=== PATIENT | female | born 1955 | race Caucasian/White ===

== ENCOUNTER → 2017-01-16 | Outpatient (CLI) | payer BC ==
[2016-03-08 21:30] VITALS: BP 150/73
[~2017-01-16] MED LIST: CITA20SO PO; LEVO75TA5 PO; LOSA50TA6 PO; METF500T4 PO; PRAV10TA2 PO
--- NOTE | 2017-01-16 14:59 | RAD ---
Abdominal ultrasound - limited to the kidneys Indication: Chronic kidney disease stage III. Comparison: Ultrasound abdomen 09/20/2016. Procedure: Transabdominal ultrasound images are obtained of the kidneys and bladder. Findings: Right kidney measures 10.9 cm in length. Superior pole of right kidney demonstrates 1.5 cm echogenic focus without convincing shadowing, thought to represent angiomyolipoma. No convincing stone is seen. No obstruction is identified. Underlying parenchymal echogenicity of the right kidney appears appropriate. Left kidney measures 11.3 cm in length. Left kidney is without obstruction or stone. Underlying parenchymal echogenicity appears appropriate. Urinary bladder has unremarkable appearance. Impression: 1. Small right renal angiomyolipoma. 2. Otherwise, unremarkable renal ultrasound.
== END | disposition home or self-care (01) ==
LOC: US 13:32
PROVIDERS: ATTEND Internal Medicine Nephrology
DX: N18.3 Chronic kidney disease, stage 3 (moderate) (principal)
CPT/HCPCS: 76770

== ENCOUNTER → 2017-01-30 | Outpatient (CLI) | payer BC ==
[2016-03-08 21:30] VITALS: BP 150/73
--- NOTE | 2017-01-31 07:19 | RAD ---
Bilateral lower extremity venous ultrasound, 01/30/2017: History: Leg edema Duplex evaluation of the deep veins in the lower extremities was performed including grayscale, color-flow and spectral Doppler analysis. The femoral and popliteal veins demonstrate normal compressibility and normal responses to distal augmentation maneuvers. Color imaging of those vessels shows no evidence of intraluminal clot. The visualized deep veins in both calves are patent. IMPRESSION: There is no sonographic evidence of deep vein thrombosis in either lower extremity.
== END | disposition home or self-care (01) ==
LOC: US 16:38
PROVIDERS: ATTEND Family Medicine
DX: I82.4Z1 Acute embolism and thrombosis of unspecified deep veins of right distal lower extremity (principal)
CPT/HCPCS: 93970

== ENCOUNTER 2017-02-05 19:59 | Emergency (ER) | payer BC ==
[~2017-02-05] VITALS: Ht 162.6 cm; Wt 87.0 kg
--- NOTE | 2017-02-05 20:25 | ED.ADGEN ---
Past History Past Medical History: Anxiety, Diabetes, Hypertension, Hypothyroid, Hepatitis, Lung Disease, Other Past Surgical History: Tonsillectomy, Tubal ligation Alcohol Use: None Drug Use: None Adult General Chief Complaint Chief Complaint ".. I am so sick.." [facility] HPI Patient is a 61 year old female who presents with two days of marked increase of dyspnea. Pt. also hx of dry heaving. Pt. states she had been treated for increase ankle edema the past two weeks with additional diuretics. Pt. follows with Dr. Cordova and Dr. Floyd. Patient reports history of chronic renal failure, CHF, diabetes, pulmonary fibrosis, hypertension, coronary artery disease, status post bypass surgery, and recent episode of severe nausea and vomiting. Review of Systems Review of Systems Constitutional: Subjective history of fever or chills [] Eyes: Denies change in visual acuity, redness, or eye pain [] HENT: Denies nasal congestion or sore throat [] Respiratory: History of cough and shortness of breath [] Cardiovascular: No additional information not addressed in HPI [] GI: History of generalized abdominal pain, nausea, vomiting, and diarrhea [] : Denies dysuria or hematuria [] Musculoskeletal: Denies back pain or joint pain [] Integument: Denies rash or skin lesions [] Neurologic: Denies headache, focal weakness or sensory changes [] Endocrine: Denies polyuria or polydipsia [] Family History Family History Noncontributory Current Medications Current Medications Current Medications Medications (Trade) Dose Ordered Sig/Joselyn Start Time Stop Time Status Last Admin Dose Admin Albuterol/ Ipratropium (Duoneb) 3 ml 1X ONCE 02/05/17 21:00 02/05/17 21:01 DC 02/05/17 21:00 3 ML Aspirin 324 mg 324 mg 1X ONCE 02/05/17 21:00 02/05/17 21:01 DC Azithromycin (Zithromax) 500 mg 1X ONCE 02/05/17 21:00 02/05/17 21:01 DC Calcium Chloride 1,000 mg 1X ONCE 02/05/17 21:00 02/05/17 21:01 DC 02/05/17 21:00 1,000 MG Ceftriaxone Sodium/Sodium Chloride (Rocephin/Iv Sodium Chloride 0.9% 100ml) 100 ml @ 200 mls/hr 1X ONCE 02/05/17 21:00 02/05/17 21:29 DC 02/05/17 21:00 200 MLS/HR Ceftriaxone Sodium (Rocephin) 2 gm STK-MED ONCE 02/05/17 22:11 02/05/17 22:12 DC Dextrose 25 gm 1X ONCE 02/05/17 21:00 02/05/17 21:01 DC 02/05/17 21:00 25 GM Enoxaparin Sodium (Lovenox 100mg Syringe) 100 mg 1X ONCE 02/05/17 21:00 02/05/17 21:01 DC 02/05/17 21:00 100 MG Insulin Human Regular (Novolin R) 10 unit 1X ONCE 02/05/17 21:00 02/05/17 21:01 DC 02/05/17 21:00 10 UNIT Methylprednisolone Sodium Succinate 125 mg 125 mg 1X ONCE 02/05/17 21:00 02/05/17 21:01 DC 02/05/17 21:00 125 MG Norepinephrine Bitartrate 4 mg 4 mg STK-MED ONCE 02/05/17 21:44 02/05/17 21:45 DC Sodium Polystyrene Sulfonate (Kayexalate) 30 gm 1X ONCE 02/05/17 22:30 02/05/17 22:31 DC Sodium Bicarbonate 50 meq 1X ONCE 02/05/17 21:00 02/05/17 21:01 DC 02/05/17 20:57 50 MEQ Sodium Chloride (Iv Sodium Chloride 0.9% 1,000ml) 1,000 ml @ 100 mls/hr Q10H 02/05/17 21:00 02/06/17 07:00 DC 02/05/17 21:00 100 MLS/HR Sodium Chloride (Iv Sodium Chloride 0.9% 100ml) 100 ml @ As Directed STK-MED ONCE 02/05/17 22:11 02/05/17 22:12 DC Allergies Allergies Allergies Coded Allergies Type Severity Reaction Last Updated Verified Sulfa (Sulfonamide Antibiotics) Allergy Intermediate Hives 11/15/14 Yes Physical Exam Physical Exam Constitutional: in acute distress, morbidly ill in appearance. [] HENT: Normocephalic, atraumatic, bilateral external ears normal, actively vomiting, no oral exudates, nose normal. [] Eyes: PERRLA, EOMI, conjunctiva normal, no discharge. [] Neck: Normal range of motion, no tenderness, supple, no stridor. JVD Cardiovascular:Heart rate regular rhythm, no murmur, PMI to the left Lungs & Thorax: Bilateral breath sounds diffuse rhonchi wheezing and rales throughout lung brizuela on auscultation [. Midline scar Abdomen: Bowel sounds are active, soft, generalized tenderness, no masses, no pulsatile masses. Old scar Skin: Warm, dry, no erythema, no rash. Poor turgor Back: No tenderness, no CVA tenderness. [] Extremities: No tenderness, no cyanosis, no clubbing, ROM intact, leg edema. Arthritic changes Neurologic: Alert and oriented X 3, generalized weakness,, decreased distal sensory function, no focal deficits noted. [] Psychologic: Affect very anxious, judgement normal, mood depressed Current Patient Data Vital Signs Vital Signs Date Time Temp Pulse Resp B/P Pulse Ox O2 Delivery O2 Flow Rate FiO2 02/05/17 22:32 71 21 113/49 98 02/05/17 22:13 Ventilator 02/05/17 22:05 97.7 2 Lab Results Laboratory Tests Test 02/05/17 20:02 02/05/17 20:10 02/05/17 20:27 02/05/17 22:10 Prothrombin Time 21.5SEC (9.4-11.4) H Prothrombin Time INR 2.1 (0.9-1.1) H PTT 35SEC (23-33) H D-Dimer (Tiff) 1.35mg/L (0.00-0.50) H Sodium Level 132mmol/L (136-145) L Potassium Level 6.3mmol/L (3.5-5.1) *H Chloride Level 93mmol/L (98-107) L Carbon Dioxide Level 7mmol/L (21-32) *L Anion Gap 32 (6-14) H 29mmol/L (6-14) H Blood Urea Nitrogen 74mg/dL (7-20) H Creatinine 4.0mg/dL (0.6-1.0) H Estimated GFR (Cockcroft-Gault) 11.3 Glucose Level 72mg/dL (70-99) 70mg/dL (60-99) Calcium Level 8.9mg/dL (8.5-10.1) Magnesium Level 1.8mg/dL (1.8-2.4) Total Bilirubin 2.5mg/dL (0.2-1.0) H Direct Bilirubin 1.9mg/dL (0.0-0.2) H Aspartate Amino Transferase (AST) 183U/L (15-37) H Alanine Aminotransferase (ALT) 70U/L (14-59) H Alkaline Phosphatase 157U/L (46-116) H Creatine Kinase 2506U/L (26-192) H Creatine Kinase MB (Mass) 192.6ng/mL (0.0-3.6) H Creatine Kinase MB Relative Index 7.7% (0-4) H Troponin I Quantitative 9.087ng/mL (0-0.055) H NY-Efz-H-Type Natriuretic Peptide 95913hi/mL (0-124) H Total Protein 7.3g/dL (6.4-8.2) Albumin 3.4g/dL (3.4-5.0) Lipase 365U/L (73-393) Blood pH 7.16 (7.35-7.45) *L Blood Gas PCO2 19mmHg (35-45) *L Blood Gas PO2 80mmHg (80-100) Blood Gas HCO3 7mmol/L (22-26) L Arterial Bld O2 Saturation (Calc) 92% (92-99) FiO2 28% POC Hemoglobin 15.0gm/dL POC Hematocrit 44% POC Sodium 129mmol/L (135-145) L POC Potassium 6.8mmol/L (3.5-5.0) *H POC Chloride 99mmol/L (98-110) POC Total CO2 9mmol/L (23-32) L POC Blood Urea Nitrogen 77mg/dL (8-26) H POC Creatinine 3.7mg/dL (0.5-1.4) H POC Ionized Calcium (Spencer) 0.89mmol/L (1.13-1.32) L White Blood Count 13.4x10^3/uL (4.0-11.0) H Red Blood Count 4.76x10^6/uL (3.50-5.40) Hemoglobin 11.1g/dL (12.0-15.5) L Hematocrit 37.8% (36.0-47.0) Mean Corpuscular Volume 79fL (79-100) Mean Corpuscular Hemoglobin 23pg (25-35) L Mean Corpuscular Hemoglobin Concent 29g/dL (31-37) L Red Cell Distribution Width 22.1% (11.5-14.5) H Platelet Count 225x10^3/uL (140-400) Neutrophils (%) (Auto) 86% (31-73) H Lymphocytes (%) (Auto) 11% (24-48) L Monocytes (%) (Auto) 3% (0-9) Eosinophils (%) (Auto) 0% (0-3) Basophils (%) (Auto) 0% (0-3) Neutrophils # (Auto) 11.5x10^3uL (1.8-7.7) H Lymphocytes # (Auto) 1.4x10^3/uL (1.0-4.8) Monocytes # (Auto) 0.4x10^3/uL (0.0-1.1) Eosinophils # (Auto) 0.0x10^3/uL (0.0-0.7) Basophils # (Auto) 0.0x10^3/uL (0.0-0.2) Segmented Neutrophils % 80% (35-66) H Band Neutrophils % 7% (0-9) Lymphocytes % 9% (24-48) L Monocytes % 4% (0-10) Platelet Estimate Adequate (ADEQUATE) Hypochromasia Slight Anisocytosis Slight EKG EKG I interpretation of EKG shows a sinus rhythm at 71 bpm. There is right axis deviation and intraventricular block. No findings acute STEMI with contralateral changes. [] Radiology/Procedures Radiology/Procedures My interpretation of chest x-ray shows cardiomegaly and increased cephalization consistent with CHF and areas of pulmonary fibrosis/pneumonia [] Course & Med Decision Making Course & Med Decision Making Pertinent Labs and Imaging studies reviewed. (See chart for details) Procedure note- Central line placement- need for IV access and pressure support . The left subclavian prepped with kit. Sterile gown and gloves and mask and drapes. Lidocaine local injection. Central line placed by Seldinger technique in the Trendelenburg position. Return of venous blood all 3 ports. Biopatch placed. Line sutured. Sterile dressing placed. Chest x-ray post placement shows adequate location and no pneumothorax. Procedure note- intubation- patient received sedation and 7.5 tube placed with glide scope. CO2 change. Fog of tube. Breath sounds bilaterally over axillary with no breath sounds over stomach. Increased saturations. Chest post shows adequate placement. Procedure note-OG placed for decompression of stomach by direct visualization with glide scope. Return of gastric material. Adequate placement by chest x- ray. Gross presentation, testing and treatment plan with - will accept pt in transfer to [facility]. Critical Care 90 min. [] Final Impression Final Impression 1. Acute on chronic renal failure 2. CHF 3. Respiratory failure 4. Pneumonia 5. Anemia microcytic hypochromic 6. Elevated LFTs 7. SIRS[] 8. Metabolic acidosis/respiratory acidosis Problems: Dragon Disclaimer Dragon Disclaimer This electronic medical record was generated, in whole or in part, using a voice recognition dictation system. SNEHAL ERIC MD Feb 05, 2017 20:25
[2017-02-05 20:31] LABS: POTASSIUM ISTAT 6.8 mmol/L (3.5-5.0)
[2017-02-05 20:39] LABS: BGAS PH 7.16 (7.35-7.45)
--- NOTE | 2017-02-05 20:48 | EKG ---
[address] [address] Test Date: 2017-02-05 Test Time: 20:47:22 Pat Name: JUSTIN DHILLON Department: Room: Gender: F Supervisor Frame Assembly: ILA : [id number] Requested By: SNEHAL ERIC Order Number: [id number] Reading MD: Luke Lozano Measurements Intervals [place] Rate: 71 P: 59 OR: 150 QRS: 137 QRSD: 132 T: 2 QT: 488 QTc: 530 Interpretive Statements SINUS RHYTHM ABNORMAL RIGHT AXIS DEVIATION NON SPECIFIC INTRAVENTRICULAR BLOCK CANNOT RULE OUT HIGH LATERAL INFARCT Electronically Signed On 02-07-2017 15:37:40 CDT by Luke Lozano
[2017-02-05] MEDS ORDERED: IV NORMAL SALINE 100ML 100 ML ONE ×2 (20:52→22:11)
[2017-02-05] MEDS ORDERED: CEFTRIAXONE SODIUM 2 GM VIAL IV ONE ×2 (20:53→22:11)
[2017-02-05] MEDS ORDERED: ENOXAPARIN ** NOTE DOSE ** SYRINGE SQ ONE (21:00)
[2017-02-05] MEDS ORDERED: AZITHROMYCIN 250 MG TABLET. PO ONE (21:00)
[2017-02-05] MEDS ORDERED: IPRATRPIUM/ALBUTEROL 0.5/2.5MG 3 ML NEBU. NEB ONE (21:00)
[2017-02-05] MEDS ORDERED: CALCIUM CHLORIDE 1,000 MG/10 ML VIAL IV ONE (21:00)
[2017-02-05] MEDS ORDERED: CEFTRIAXONE SODIUM 2 GM in IV NORMAL SALINE 100ML 100 ML IV ONE (21:00)
[2017-02-05] MEDS ORDERED: DEXTROSE 50% 25 GM / 50ML DISP.SYRIN. IV ONE (21:00)
[2017-02-05] MEDS ORDERED: ASPIRIN 81 MG TAB.CHEW PO ONE (21:00)
[2017-02-05] MEDS ORDERED: IV NORMAL SALINE 1,000ML 1,000 ML IV SCH (21:00)
[2017-02-05] MEDS ORDERED: methylPREDNISolone SOD SUCC PF 125 MG/2 ML VIAL. IV ONE (21:00)
[2017-02-05] MEDS ORDERED: INSULIN REGULAR 100 UNIT/ML 10ML VIAL. IV ONE (21:00)
[2017-02-05] MEDS ORDERED: SODIUM BICARB ADULT 8.4% 50 MEQ/50 ML DISP.SYRIN. IV ONE (21:00)
[2017-02-05 21:09] LABS: ALBUMIN 3.4 g/dL (3.4-5.0); CALCIUM 8.9 mg/dL (8.5-10.1); DIRECT BILIRUBIN 1.9 mg/dL (0.0-0.2); GFR 11.3; MAGNESIUM 1.8 mg/dL (1.8-2.4); TOTAL BILIRUBIN 2.5 mg/dL (0.2-1.0); TOTAL PROTEIN 7.3 g/dL (6.4-8.2)
[2017-02-05 21:14] LABS: POTASSIUM 6.3 mmol/L (3.5-5.1)
[2017-02-05] MEDS ORDERED: ETOMIDATE 40 MG/20 ML VIAL. IV ONE (21:30)
[2017-02-05] MEDS ORDERED: MIDAZOLAM HCL 5 MG/5 ML VIAL ONE (21:30)
[2017-02-05] MEDS ORDERED: PROPOFOL 10,000 MCG/ML (20ML) VIAL IV ONE (21:30)
[2017-02-05] MEDS ORDERED: PROPOFOL IV ONE (21:30)
[2017-02-05] MEDS ORDERED: KETAMINE HCL 500 MG/10 ML VIAL. ONE (21:30)
[2017-02-05] MEDS ORDERED: IV NORMAL SALINE 250ML 250 ML ONE (21:44)
[2017-02-05] MEDS ORDERED: NOREPINEPHRINE BITARTRATE 4 MG/4 ML VIAL. IV ONE (21:44)
[2017-02-05] MEDS ORDERED: SODIUM POLYSTYRENE SULFONATE 15 GM/60 ML ORAL.SUSP. PO ONE (22:30)
[2017-02-05 22:32] VITALS: BP 113/49
[2017-02-05 22:39] LABS: BASO % 0 % (0-3); EOS % 0 % (0-3); HEMATOCRIT 37.8 % (36.0-47.0); HEMOGLOBIN 11.1 g/dL (12.0-15.5); LYMPH # 1.4 x10^3/uL (1.0-4.8); LYMPH % 11 % (24-48); MEAN CORPUSCULAR HEMOGLOBIN 23 pg (25-35); MEAN CORPUSCULAR HGB CONC 29 g/dL (31-37); MEAN CORPUSCULAR VOLUME 79 fL (79-100); MONO # 0.4 x10^3/uL (0.0-1.1); MONO % 3 % (0-9); NEUT # 11.5 x10^3uL (1.8-7.7); NEUT % 86 % (31-73); PLATELET COUNT 225 x10^3/uL (140-400); RED BLOOD COUNT 4.76 x10^6/uL (3.50-5.40); RED CELL DISTRIBUTION WIDTH 22.1 % (11.5-14.5); WHITE BLOOD COUNT 13.4 x10^3/uL (4.0-11.0)
[2017-02-05 23:51] LABS: % BANDS 7 % (0-9); % LYMPHS 9 % (24-48); % MONOS 4 % (0-10); % SEGS 80 % (35-66); PLT ESTIMATE ADEQUATE (ADEQUATE)
[2017-02-05 23:52] LABS: ANISOCYTOSIS SLIGHT; HYPOCHROMIA SLIGHT
--- NOTE | 2017-02-06 08:45 | RAD ---
Exam: AP portable chest. History: Dyspnea, post intubation. Comparison: 11/15/2014. Findings: Median sternotomy wires are present. Endotracheal tube tip projects 3 cm above the anselmo. Esophagogastric tube is present with tip projecting at proximal body of stomach. A left subclavian central venous catheter is present with tip projecting at the atriocaval junction. Cardiac silhouette appears within normal limits for size. No pneumothorax or pleural effusion is seen. Bilateral interstitial markings are increased, compatible with fibrotic change; given differences in technique, no significant interval change is identified. No convincing acute airspace disease is identified.. Impression: 1. Fibrotic changes. 2. Medical lines and tubes as above. 3. No convincing acute airspace disease identified.
== END 2017-02-05 22:43 | disposition short-term general hospital (02) ==
LOC: ER 20:02
DX: N18.9 Chronic kidney disease, unspecified (principal); J96.90 Respiratory failure, unspecified, unspecified whether with hypoxia or hypercapnia; I13.0 Hypertensive heart and chronic kidney disease with heart failure and stage 1 through stage 4 chronic kidney disease, or unspecified chronic kidney disease; I50.9 Heart failure, unspecified; J18.9 Pneumonia, unspecified organism; R79.89 Other specified abnormal findings of blood chemistry; R65.10 Systemic inflammatory response syndrome (SIRS) of non-infectious origin without acute organ dysfunction; E87.4 Mixed disorder of acid-base balance; E11.9 Type 2 diabetes mellitus without complications; I10 Essential (primary) hypertension; E03.9 Hypothyroidism, unspecified; Z88.2 Allergy status to sulfonamides
CPT/HCPCS: 31500; 36415; 36556; 43752; 71010; 80047; 80048; 80076; 82553; 82803; 83690; 83735; 83880; 84443; 84484; 85007; 85027; 85379; 85610; 85730; 87040; 93005; 94002; 96365; 96372; 96375; 99291; 99292; J0696; J1650; J1815; J2250; J2704; J2930; J3490; J7620; J7030